=== PATIENT | female | born 1985 | race Caucasian/White ===

== ENCOUNTER 2018-02-18 10:36 | Emergency (ER) | payer SELFPAY ==
[2018-02-18 10:38] VITALS: BP 125/75; PULSE 63; PULSE 78; RESP 18; TEMP 36.9; O2SAT 100
--- NOTE | 2018-02-18 11:10 | ED.DCSUM_ITS ---
- ER Visit Summary Date of Service: 02/18/18 Chief Complaint: Acute vertigo and prescription refill History of Present Illness: The patient is a 32 F who presents with acute intermittent vertigo that is associated with nausea, binocular blurred vision, a sense of feeling drunk and unsteadiness. Patient reports symptoms are better with her eyes closed. She denies headache. She denies double vision or loss of vision. She complains of a fullness muffled sensation left ear. Approximately a month ago she was diagnosed with influenza. She denies rhinorrhea or postnasal drainage. Denies sore throat. Denies neck pain. She denies any cardiac respiratory symptoms. GI is positive for nausea otherwise negative. She denies any urologic symptoms. There is no history of recent trauma. Please read written note for complete detail Physical Examination: Vitals are essentially unremarkable. BMI is 30.2. Head is atraumatic normocephalic. Pupils are equal round reactive. Extraocular muscles are intact. TMs are pearly white with landmarks noted. Nares patent with no drainage. Posterior pharynx without erythema or exudate. Uvula is midline. There is no dysphonia or dysphasia. Trachea is midline. There is no stridor with auscultation of the neck. Funduscopic exam reveals normal cup-to- disc ratio with no papilledema. There is no carotid bruit. Heart is regular without murmur, gallop or rub. S1 and S2 are normal. Lungs are clear to auscultation with good movement of air bilaterally. Abdomen is soft nontender. Patient is alert and oriented ?3. Motor is 5 over 5. Sensory is intact. DTRs are symmetric with no clonus or Babinski sign. Cranial 2 through 12 are intact. Cerebellar testing is normal. Romberg test with eyes open and closes normal. Gait was observed and normal. Greg-Hallpike maneuver was positive to left with complaint of nausea and vertigo and nystagmus was noted with fast component to the right. I Askew test was negative. Test Results: Patient's symptoms resolved after modified Ambika maneuver. Emergency Department Course and Treatment: Patient was informed her symptoms are secondary to paroxysmal benign positional vertigo. She was informed of treatment and modified Ambika maneuver was performed. She also received a prescription for her Synthroid. Treatment Plan: Follow-up with Dr. Chao as needed Disposition: Discharged home in stable improved condition Impression: 1. Paroxysmal benign positional vertigo with crystal manipulation 2. Prescription refill for Synthroid This note was generated with [employer] dictation software. It may contain incorrect words, spelling, and punctuation that were not noted in review of the chart prior to signing ED Disposition - Plan for ED Patient: Disposition: Home or Assisted Living Chief Complaint: Dizziness Instructions: ED BPV Vertigo Prescriptions: Levothyroxine Sodium [Synthroid] 100 mcg PO DAILY #30 tab Referrals: Raheel Morataya PA [Primary Care Provider] -
== END 2018-02-18 11:24 | disposition home or self-care (01) ==
LOC: ED 11:16
PROVIDERS: Emergency Provider Emergency Medicine; Family Provider Physician Assistant; PCP Physician Assistant
DX: H81.10 Benign paroxysmal vertigo, unspecified ear (principal); Z76.0 Encounter for issue of repeat prescription; E66.9 Obesity, unspecified; Z68.30 Body mass index [BMI] 30.0-30.9, adult; E03.9 Hypothyroidism, unspecified; Z79.899 Other long term (current) drug therapy
CPT/HCPCS: 99282

== ENCOUNTER 2018-04-29 11:30 | Emergency (ER) | payer SELFPAY ==
[2018-04-29 11:31] VITALS: BP 138/73; PULSE 73; RESP 16; TEMP 36.8; O2SAT 100; BMI 32.2
--- NOTE | 2018-04-29 11:54 | EKG12_ITS ---
Test Reason : Blood Pressure : / mmHG Vent. Rate : 077 BPM Atrial Rate : 077 BPM P-R Int : 126 ms QRS Dur : 092 ms QT Int : 398 ms P-R-T Axes : 004 006 023 degrees QTc Int : 450 ms Normal sinus rhythm Normal ECG Confirmed by WERNER TRAYLOR, JAYNE ([id number]), online content editor LOURDES JETER ([id number]) on 05/01/2018 2:28:06 PM Referred By: ISABELLA Confirmed By:JAYNE CALDERA MD
--- NOTE | 2018-04-29 11:54 | RAD_ITS ---
STUDY: X-RAY CHEST REASON FOR EXAM: Female, 32 years old. Chest heaviness TECHNIQUE: Single AP portable view of the chest. COMPARISON: 10/07/2017 FINDINGS: The lungs are clear and expanded. There is no demonstrated pleural abnormality. Normal size heart. Normal mediastinum and peng. Normal visualized pulmonary arteries. Normal visualized aortic arch and descending thoracic aorta. Normal visualized thoracic spine. Normal visualized ribs, clavicles, and shoulders. There is no demonstrated abnormality of the visualized soft tissue structures of the upper abdomen. RAD/Chest 1 View (Portable) IMPRESSION: Normal x-ray examination of the chest. Electronically Signed: Haris Rosenberg DO at 12:41 EDT Tel , Service support ,
[2018-04-29 12:14] VITALS: BP 117/56; BP 128/75; BP 129/79; PULSE 115; PULSE 71; PULSE 78
[2018-04-29 12:23] LABS: Absolute Lymphocyte Count 1.31 X10^3/ul (0.83-4.51); Basophil# 0.06 X10^3/uL; Basophil% 1.2 % (0-1); Hematocrit 30.1 % (37-47); Hemoglobin 7.9 g/dl (12.0-15.0); Lymphocyte # 1.31 X10^3/ul (4.0); Lymphocyte % 26.4 % (19-41); Mean Corp Hgb Conc 26.2 g/gl (32-36); Mean Corpuscular Volume 60.8 fL (81-99); Monocyte# 0.49 X10^3/uL; Monocyte% 9.9 % (0-10); Neutrophil % 60.5 % (47-70); Platelet Count 274 K/mm3 (150-450); RBC Distribution Width CV 18.7 % (11.6-14.6); RBC Distribution Width SD 40.8 fl (35.1-43.9); Red Blood Count 4.95 M/mm3 (4.2-5.4)
[2018-04-29 12:24] LABS: Differential Indicated SCAN CRITERIA MET; POSITIVE COUNT NO; POSITIVE DIFFERENTIAL NO; POSITIVE MORPHOLOGY YES
[2018-04-29] MEDS: Ondansetron 4 MG/2 ML Vial IV (12:25)
[2018-04-29] MEDS: 0.9% Normal Saline 1,000 ML 1000 ML IV (12:25)
[2018-04-29 12:44] LABS: Anion Gap 8 (5-15); BUN 8 mg/dL (7-18); Calcium,Total 8.4 mg/dL (8.5-10.1); Chloride 108 mmol/L (98-107); Creatinine, Serum 0.73 mg/dL (0.55-1.02); EST Glomerular Filtration Rate 98 mL/min (>60); Est Glom Filt Rate - Afr Amer 118 mL/min (>60); Estimated Creatinine Clearance 90.67 ml/min; Glucose 94 mg/dL (74-106); Potassium 3.9 mmol/L (3.5-5.1); Sodium Level 140 mmol/L (136-145)
[2018-04-29 12:48] LABS: Pregnancy, Serum, hCG Quali. NEGATIVE Negative (0-9 Nonpreg)
[2018-04-29 13:05] LABS: Bacteria 0 SEEN /hpf (None Seen); Mucous, Urine 0 SEEN /hpf (<or=2+); Red Blood Cells-Urine 0 SEEN /hpf (0-5)
[2018-04-29 13:12] LABS: Color, Urine Straw (Yellow); Glucose, Dipstick Normal (Normal); Ketone-Dipstick Negative (Negative); Leukocyte Esterase-Dipstick 100 /ul (Negative); Nitrite-Dipstick Negative (Negative); Occult Blood-Urine Negative /ul (Negative); Protein-Dipstick Negative (Negative); Urine Bilirubin Dipstick Negative (Negative); Urine Clarity Sl. Cloudy (Clear); Urine Urobilinogen Normal (Normal)
[2018-04-29 13:20] LABS: Squamous Epithelial Cells - UA 0-5 SEEN /hpf (5-10); White Blood Cells 10-25 SEEN /hpf (0-5)
--- NOTE | 2018-04-29 13:36 | ED.DCSUM_ITS ---
- ER Visit Summary Date of Service: 04/29/18 Chief Complaint: Vertigo History of Present Illness: The patient is a [address] Chao. She reports that she has vertigo that began yesterday. She had 3 episodes yesterday lasted 30-45 minutes. Today she had an episode lasted 20 minutes. She reports that she has had buzzing in her left ear and muffled hearing. She denies any slurred speech or double vision. Patient also reports that she feels lightheaded. She reports that it comes on randomly and is not related to posture. She reports that she has left-sided chest pain that began 2 weeks ago. It is a constant waxing and waning pain. Is 10 out of 10 currently. It is increased with twisting and decreased with laying down. She denies any ankle swelling or calf pain. No history of DVT. No recent travel. She is not on control pills. She does not smoke. Physical Examination: Vitals: Stable. Afebrile. General: Well-nourished and well-developed. Head: Normocephalic atraumatic. Neck: Supple, no lymphadenopathy. No JVD. Nontender. Cardiovascular: Regular rate and rhythm. No murmurs. Respiratory: No respiratory distress. Clear to auscultation bilaterally. Abdominal: Soft, nontender, nondistended, normal bowel sounds. No guarding, rebound, or peritoneal signs. Back: Nontender. Extremities: Nontender, no edema. Skin: Normal color, no rash. Neurologic: Alert and oriented ?3. Cranial nerves II through XII are intact. Normal strength and sensation. Psych: Normal affect. Test Results: EKG is sinus at 77 with no acute changes. Troponin is negative despite 2 weeks of constant pain. Parents test negative. UA shows 10-25 white blood cells with no bacteria. Chem-7 more for chloride 108 and calcium of 8.4. CBC is more for hemoglobin is 7.9. Last year her hemoglobin range between 7.5 -7.7. Chest x-ray is normal. Emergency Department Course and Treatment: Patient has had no vertigo while here. She had orthostatic vital signs that were positive. Her heart rate went from 78-115. She is given a liter of normal saline is resting comfortably. Had a prolonged discussion with the patient about her anemia. She reports that she has been anemic since she was born. States that she is only required one transfusion and that was during a . Treatment Plan: Patient will be discharged with Zofran, Antivert, and Cipro. Instructed health her primary care physician 3-5 days not improving. Return to the emergency department for any worsening symptoms. Disposition: To home in improved and stable condition. Impression: 1. Orthostatic hypotension. 2. Anemia, chronic. 3. UTI. 4. Vertigo, peripheral. 5. Chest pain, atypical. This note was generated with [employer] dictation software. It may contain incorrect words, spelling, and punctuation that were not noted in review of the chart prior to signing ED Disposition - Plan for ED Patient: Disposition: Home or Assisted Living Chief Complaint: Dizziness Instructions: ED Hypotension Orthostatic, ED UTI Cystitis Female Prescriptions: Ondansetron [Zofran Odt] 4 mg PO Q8H PRN PRN #10 tablet PRN Reason: Nausea Meclizine HCl [Antivert] 25 mg PO 4X/DAY PRN PRN #20 tablet PRN Reason: Dizziness Ciprofloxacin [Cipro] 500 mg PO BID #6 tablet Referrals: Raheel Morataya PA [Primary Care Provider] - 3-5 Days if not improving
[2018-04-29 13:39] VITALS: BP 132/67; PULSE 75; RESP 12; RESP 17; O2SAT 100
[2018-04-29] MEDS: Ciprofloxacin 500 MG Tablet PO (13:43)
== END 2018-04-29 13:49 | disposition home or self-care (01) ==
LOC: ED 12:25
PROVIDERS: Emergency Provider Emergency Medicine; Family Provider Physician Assistant; PCP Physician Assistant
DX: I95.1 Orthostatic hypotension (principal); D64.9 Anemia, unspecified; R42 Dizziness and giddiness; N39.0 Urinary tract infection, site not specified; R07.89 Other chest pain; J45.909 Unspecified asthma, uncomplicated; E03.9 Hypothyroidism, unspecified; Z79.899 Other long term (current) drug therapy
CPT/HCPCS: 71045; 80048; 81001; 84484; 84703; 85025; 93005; 96361; 96374; 99285; J7030; A4216; J2405

== ENCOUNTER 2018-11-19 14:13 | Emergency (ER) | payer SELFPAY ==
[2018-11-19 14:14] VITALS: BP 113/63; PULSE 87; RESP 16; TEMP 36.9; O2SAT 100; BMI 34.2
--- NOTE | 2018-11-19 14:33 | ED.VISSUMM ---
- ER Visit Summary Date of Service: 11/19/18 Chief Complaint: Nausea, vomiting and diarrhea. Also rash. History of Present Illness: The patient is a 33 F past medical history of anemia and is in. Prior cholecystectomy tubal ligation. States for the last 2 weeks she has had a rash left arm, right arm, abdomen and right thigh. It itches. States the last 3 days she has had nausea. Today at work started having nausea, vomiting and diarrhea. No fever. No significant abdominal pain. No dysuria. She is been treating the rash with hydrocortisone cream without any significant relief. Physical Examination: Well-appearing young female. No acute distress. Vital signs are stable. Afebrile. HEENT exam unremarkable. Moist mucous membranes. Neck nontender no lymphadenopathy. Lungs clear to auscultation bilaterally. Heart regular rhythm no murmur. Abdomen soft and nontender. Normal bowel sounds no peritoneal signs. No signs of obstruction. Both the right upper right lower quadrants are unremarkable. No hernias or masses. Extremities moves all 4. Neurovascularly intact. Back nontender. Skin there is a rash that is red on her left deltoid, right deltoid. Right mid abdomen and right thigh.. It is irritated from her scratching it. There is no petechiae or purpura. There is no sloughing of skin. Or vesicles. There is no cellulitis. It appears to be an allergic reaction that she has scratched. Neurologically she is awake and alert. Test Results: None Emergency Department Course and Treatment: Rash appears to be allergic reaction. The nausea vomiting diarrhea appears to be viral. She does not need IV hydration. She does not needs workup. Treatment Plan: Prednisone daily first dose given in ER for her allergic reaction rash Zofran as needed for the nausea and Disposition: Discharge Impression: Acute pruritic rash secondary to allergic reaction Acute viral syndrome with nausea, vomiting and diarrhea secondary to gastroenteritis This note was generated with [employer] dictation software. It may contain incorrect words, spelling, and punctuation that were not noted in review of the chart prior to signing ED Disposition - Plan for ED Patient: Chief Complaint: Nausea/Vomiting/Diarrhea Referrals: NOT,DEFINED [Primary Care Provider] -
--- NOTE | 2018-11-19 14:36 | ED.DCSUM_ITS ---
- ER Visit Summary Date of Service: 11/19/18 Chief Complaint: Nausea, vomiting and diarrhea. Also rash. History of Present Illness: The patient is a 33 F past medical history of anemia and is in. Prior cholecystectomy tubal ligation. States for the last 2 weeks she has had a rash left arm, right arm, abdomen and right thigh. It itches. States the last 3 days she has had nausea. Today at work started having nausea, vomiting and diarrhea. No fever. No significant abdominal pain. No dysuria. She is been treating the rash with hydrocortisone cream without any significant relief. Physical Examination: Well-appearing young female. No acute distress. Vital signs are stable. Afebrile. HEENT exam unremarkable. Moist mucous membranes. Neck nontender no lymphadenopathy. Lungs clear to auscultation bilaterally. Heart regular rhythm no murmur. Abdomen soft and nontender. Normal bowel sounds no peritoneal signs. No signs of obstruction. Both the right upper right lower quadrants are unremarkable. No hernias or masses. Extremities moves all 4. Neurovascularly intact. Back nontender. Skin there is a rash that is red on her left deltoid, right deltoid. Right mid abdomen and right thigh.. It is irritated from her scratching it. There is no petechiae or p urpura. There is no sloughing of skin. Or vesicles. There is no cellulitis. It appears to be an allergic reaction that she has scratched. Neurologically she is awake and alert. Test Results: None Emergency Department Course and Treatment: Rash appears to be allergic reaction. The nausea vomiting diarrhea appears to be viral. She does not need IV hydration. She does not needs workup. Treatment Plan: Prednisone daily first dose given in ER for her allergic reaction rash Zofran as needed for the nausea and Disposition: Discharge Impression: Acute pruritic rash secondary to allergic reaction Acute viral syndrome with nausea, vomiting and diarrhea secondary to gastroenteritis This note was generated with [employer] dictation software. It may contain incorrect words, spelling, and punctuation that were not noted in review of the chart prior to signing ED Disposition - Plan for ED Patient: Chief Complaint: Nausea/Vomiting/Diarrhea Referrals: NOT,DEFINED [Primary Care Provider] -
--- NOTE | 2018-11-19 14:36 | ED.DEP ---
ED Disposition - Plan for ED Patient: Disposition: Home or Assisted Living Chief Complaint: Nausea/Vomiting/Diarrhea Instructions: ED Gastroenteritis Viral, ED Allergic Reaction General Other Prescriptions: Ondansetron [Zofran Odt] 4 mg PO Q8H PRN PRN #10 tab PRN Reason: Nausea Prednisone [Deltasone] 40 mg PO DAILY 7 Days tab Referrals: Jasbir Mendoza MD [STAFF PHYSICIAN] - 1 Week if not improving Additional Instructions: Prednisone daily for the allergic reaction rash. Zofran as needed for nausea. If Not improving follow-up.
[2018-11-19] MEDS: predniSONE 20 MG Tablet 40 MG PO (14:47)
[2018-11-19] MEDS: Ondansetron ODT 4 MG Tablet 8 MG PO (14:48)
[2018-11-19 14:56] VITALS: RESP 18
--- OUTSIDE RECORDS SUMMARY | 2019-01-21 15:37 | XMS RPT_ITS ---
:1985 Author Organization [facility] Care Team Providers Name Role Phone Sebastian Evangelista Attending Unavailable Primay Care Physicia, No Primary Care Unavailable Raheel Morataya Primary Care Unavailable Kosta Ramos Attending Unavailable Raheel Morataya Primary Care Unavailable Chad Benton Attending Unavailable PROBLEMS PROBLEMS No Problem Records FoundPROCEDURES PROCEDURES No Procedure Records FoundRESULTS RESULTS DISCHARGE INSTRUCTION Observed: 11/19/2018 Status: F Source: [place] 3:27 PM [facility] Medical Records Department [address] [place] [address] Discharge Instruction 11/19/18 1436 MR#: [id number] Acct: [id number] Name: CANDIDA TREVIÑO Rep #: [id number] : 1985 33 From: Sebastian Evangelista MD PCP: Care Physician, No Primary Status: DEP ER ED Disposition - Plan for ED Patient: Disposition: Home or Assisted Living Chief Complaint: Nausea/Vomiting/Diarrhea Instructions: ED Gastroenteritis Viral, ED Allergic Reaction General Other Prescriptions: Ondansetron [Zofran Odt] 4 mg PO Q8H PRN PRN #10 tab PRN Reason: Nausea Prednisone [Deltasone] 40 mg PO DAILY 7 Days tab Referrals: Jasbir Mendoza MD [STAFF PHYSICIAN] - 1 Week if not improving Additional Instructions: Prednisone daily for the allergic reaction rash. Zofran as needed for nausea. If Not improving follow-up. What to do if you have Problems For any increased pain, shortness of breath, bleeding, nausea or vomiting, chest pain, or any unexpected problems, contact your Primary Care Provider. Call [facility] ([phone]) or report to the closest Emergency Room. Call 911 if necessary. 11/19/18 1527 <Electronically signed by Sebastian Evangelista MD> Date Sebastian Evangelista MD Cosigner Signature (If Indicated): Date CC: No Primary Care Physician EMERGENCY DEPARTMENT Observed: 11/19/2018 Status: F Source: [place] SUMMARY 3:27 PM [facility] Medical Records Department [address] [place] [id number] Emergency Department Summary 11/19/18 1433 MR#: [id number] Acct: [id number] Name: CANDIDA TREVIÑO Rep #: [id number] : 1985 33 From: Sebastian Evangelista MD PCP: Care Physician, No Primary Status: DEP ER - ER Visit Summary Date of Service: 11/19/18 Chief Complaint: Nausea, vomiting and diarrhea. Also rash. History of Present Illness: The patient is a 33 F past medical history of anemia and is in. Prior cholecystectomy tubal ligation. States for the last 2 weeks she has had a rash left arm, right arm, abdomen and right thigh. It itches. States the last 3 days she has had nausea. Today at work started having nausea, vomiting and diarrhea. No fever. No significant abdominal pain. No dysuria. She is been treating the rash with hydrocortisone cream without any significant relief. Physical Examination: Well-appearing young female. No acute distress. Vital signs are stable. Afebrile. HEENT exam unremarkable. Moist mucous membranes. Neck nontender no lymphadenopathy. Lungs clear to auscultation bilaterally. Heart regular rhythm no murmur. Abdomen soft and nontender. Normal bowel sounds no peritoneal signs. No signs of obstruction. Both the right upper right lower quadrants are unremarkable. No hernias or masses. Extremities moves all 4. Neurovascularly intact. Back nontender. Skin there is a rash that is red on her left deltoid, right deltoid. Right mid abdomen and right thigh.. It is irritated from her scratching it. There is no petechiae or purpura. There is no sloughing of skin. Or vesicles. There is no cellulitis. It appears to be an allergic reaction that she has scratched. Neurologically she is awake and alert. Test Results: None Emergency Department Course and Treatment: Rash appears to be allergic reaction. The nausea vomiting diarrhea appears to be viral. She does not need IV hydration. She does not needs workup. Treatment Plan: Prednisone daily first dose given in ER for her allergic reaction rash Zofran as needed for the nausea and Disposition: Discharge Impression: Acute pruritic rash secondary to allergic reaction Acute viral syndrome with nausea, vomiting and diarrhea secondary to gastroenteritis This note was generated with 3TEN8 dictation software. It may contain incorrect words, spelling, and punctuation that were not noted in review of the chart prior to signing ED Disposition - Plan for ED Patient: Chief Complaint: Nausea/Vomiting/Diarrhea Referrals: NOT,DEFINED [Primary Care Provider] - What to do if you have Problems For any increased pain, shortness of breath, bleeding, nausea or vomiting, chest pain, or any unexpected problems, contact your Primary Care Provider. Call [facility] ([phone]) or report to the closest Emergency Room. Call 911 if necessary. 11/19/18 1522 <Electronically signed by Sebastian Evangelista MD> Date Sebastian Ross Signature (If Indicated): Date CC: No Primary Care Physician 12 LEAD ELECTROCARDIOGRAM Observed: 05/01/2018 Status: F Source: [place] 2:28 PM [facility] REPOSITORY [facility] Cardiovascular Services [address] [place] [address] 12 Lead EKG 04/29/18 1207 MR#: [id number] Acct: [id number] Name: CANDIDA TREVIÑO Rep #: [id number] : 1985 32 From: Maxim Fulton MD Attending Dr: Status: DEP ER Ordering Dr: Chad Benton MD Date: 04/29/18 Location: ED Sex: F C Admitted: Test Reason : Blood Pressure : / mmHG Vent. Rate : 077 BPM Atrial Rate : 077 BPM P-R Int : 126 ms QRS Dur : 092 ms QT Int : 398 ms P-R-T Axes : 004 006 023 degrees QTc Int : 450 ms Normal sinus rhythm Normal ECG Confirmed by WERNER TRAYLOR, MAXIM ([id number]), international editorial producer LOURDES JETER ([id number]) on 05/01/2018 2:28:06 PM Referred By: ISABELLA Confirmed By:MAXIM FULTON MD 05/01/18 1428 Date Maxim Fulton MD CC: DOLLY Morataya; Chad Benton MD Signed EMERGENCY DEPARTMENT Observed: 04/29/2018 Status: F Source: [place] SUMMARY 4:31 PM [facility] [place] Medical Records Department [address] [place] [address] Emergency Department Summary 04/29/18 1334 MR#: [id number] Acct: [id number] Name: CANDIDA TREVIÑO Rep #: [id number] : 1985 32 From: Chad Benton MD PCP: DOLLY Carter Status: DEP ER - ER Visit Summary Date of Service: 04/29/18 Chief Complaint: Vertigo History of Present Illness: The patient is a [address] Chao. She reports that she has vertigo that began yesterday. She had 3 episodes yesterday lasted 30-45 minutes. Today she had an episode lasted 20 minutes. She reports that she has had buzzing in her left ear and muffled hearing. She denies any slurred speech or double vision. Patient also reports that she feels lightheaded. She reports that it comes on randomly and is not related to posture. She reports that she has left-sided chest pain that began 2 weeks ago. It is a constant waxing and waning pain. Is 10 out of 10 currently. It is increased with twisting and decreased with laying down. She denies any ankle swelling or calf pain. No history of DVT. No recent travel. She is not on control pills. She does not smoke. Physical Examination: Vitals: Stable. Afebrile. General: Well-nourished and well-developed. Head: Normocephalic atraumatic. Neck: Supple, no lymphadenopathy. No JVD. Nontender. Cardiovascular: Regular rate and rhythm. No murmurs. Respiratory: No respiratory distress. Clear to auscultation bilaterally. Abdominal: Soft, nontender, nondistended, normal bowel sounds. No guarding, rebound, or peritoneal signs. Back: Nontender. Extremities: Nontender, no edema. Skin: Normal color, no rash. Neurologic: Alert and oriented 3. Cranial nerves II through XII are intact. Normal strength and sensation. Psych: Normal affect. Test Results: EKG is sinus at 77 with no acute changes. Troponin is negative despite 2 weeks of constant pain. Parents test negative. UA shows 10-25 white blood cells with no bacteria. Chem-7 more for chloride 108 and calcium of 8.4. CBC is more for hemoglobin is 7.9. Last year her hemoglobin range between 7.5-7.7. Chest x-ray is normal. Emergency Department Course and Treatment: Patient has had no vertigo while here. She had orthostatic vital signs that were positive. Her heart rate went from 78-115. She is given a liter of normal saline is resting comfortably. Had a prolonged discussion with the patient about her anemia. She reports that she has been anemic since she was born. States that she is only required one transfusion and that was during a . Treatment Plan: Patient will be discharged with Zofran, Antivert, and Cipro. Instructed health her primary care physician 3-5 days not improving. Return to the emergency department for any worsening symptoms. Disposition: To home in improved and stable condition. Impression: 1. Orthostatic hypotension. 2. Anemia, chronic. 3. UTI. 4. Vertigo, peripheral. 5. Chest pain, atypical. This note was generated with [employer] software. It may contain incorrect words, spelling, and punctuation that were not noted in review of the chart prior to signing ED Disposition - Plan for ED Patient: Disposition: Home or Assisted Living Chief Complaint: Dizziness Instructions: ED Hypotension Orthostatic, ED UTI Cystitis Female Prescriptions: Ondansetron [Zofran Odt] 4 mg PO Q8H PRN PRN #10 tablet PRN Reason: Nausea Meclizine HCl [Antivert] 25 mg PO 4X/DAY PRN PRN #20 tablet PRN Reason: Dizziness Ciprofloxacin [Cipro] 500 mg PO BID #6 tablet Referrals: Raheel Morataya PA [Primary Care Provider] - 3-5 Days if not improving What to do if you have Problems For any increased pain, shortness of breath, bleeding, nausea or vomiting, chest pain, or any unexpected problems, contact your Primary Care Provider. Call [facility] ([phone]) or report to the closest Emergency Room. Call 911 if necessary. 04/29/18 1631 <Electronically signed by Chad Benton MD> Date Chad Benton MD Cosigner Signature (If Indicated): Date CC: DOLLY Morataya URINALYSIS, COMPLETE Collected: 04/29/2018 Status: F Source: [place] 12:55 PM [facility] Order Comment: Has pt arrived? Y How was Urine Obtained? CLEAN CATCH TYPE CODE TESTS RESULT OUT OF RANGE REFERENCE UNITS LAB L400.3000 Yellow COLOR Normal Straw LAB L400.3050 Clear Normal CLARITY Sl. Cloudy LAB L400.3200 Normal mg/dl Normal GLUCOSE, UR Normal LAB L400.3300 Negative mg/dL Normal BILIRUBIN URINE Negative LAB L400.3400 Negative mg/dl Normal KETONE UR Negative LAB L400.3465 1.002-1.030 Normal SP.GR. DIPSTX 1.010 LAB L400.3550 5.0 - 8.0 pH UR Normal 8.0 LAB L400.3600 Negative mg/dl PROT Normal DIPSTX Negative LAB L400.3700 Normal mg/dl Normal UROBILI Normal LAB L400.3750 Negative Normal NITRITE UR Negative LAB L400.3780 Negative /ul Normal OCCULT BLOOD-UR Negative LAB L400.3800 Negative /ul High LEUK ESTERASE 100 LAB L400.4050 0-5 /hpf WBC Normal 10-25 SEEN LAB L400.4100 0-5 /hpf 0 Normal RBC-UA SEEN LAB L400.4150 5-10 /hpf SQUAM Normal EPI 0-5 SEEN LAB L400.4300 None Seen /hpf 0 Normal BACTERIA SEEN LAB L400.4350 <or=2+ /hpf 0 Normal MUCUS, URINE SEEN Performed By: #### L400.0001 #### [facility] [address] [place], [address] CBC W/DIFF, AUTOMATED Collected: 04/29/2018 Status: F Source: [place] 12:05 PM [facility] TYPE CODE TESTS RESULT OUT OF RANGE REFERENCE UNITS LAB L100.1000 4.4-11.0 K/mm3 Normal WBC 5.0 LAB L100.1200 4.2-5.4 M/mm3 Normal RBC 4.95 LAB L100.1300 12.0-15.0 g/dl Low HGB 7.9 LAB L100.1400 37-47 % Low HCT 30.1 LAB L100.1500 81-99 fL Low MCV 60.8 LAB L100.1600 27.0-32.0 pg Low MCH 16.0 LAB L100.1700 32-36 g/gl Low MCHC 26.2 LAB L100.1810 11.6-14.6 % High RDW CV 18.7 LAB L100.1820 35.1-43.9 fl Normal RDW SD 40.8 LAB L100.1900 150-450 K/mm3 Normal PLT 274 LAB L100.2100 47-70 % Normal NEUT% 60.5 LAB L100.2200 19-41 % Normal LY% 26.4 LAB L100.2300 0-10 % Normal MONO% 9.9 LAB L100.2400 0-5 % Normal EO% 2.0 LAB L100.2500 0-1 % High BASO% 1.2 LAB L100.2550 0.0-0.9 % Normal IM GRAN % 0.000 Result Comment: IG% - Immature Granulocytes (promyelocytes, myelocytes and metamyelocytes) > 1% indicates that a LEFT SHIFT is Present. LAB L100.2620 2.0-7.7 X10 3/uL Normal Absolute Neut 3.0 LAB L100.2720 0.83-4.51 X10 3/ul Normal Absolute Lymph 1.31 LAB L100.4500 SMEAR Normal COMMENT Result Comment: SLIDE SCANNED - 1+ TARGET CELLS, 1+ LARGE PLTS. Performed By: #### L100.0100 #### [facility] [address] [place], [place], [address] BASIC METABOLIC Collected: 04/29/2018 Status: F Source: [place] PROFILE (BMP) 12:05 PM [facility] TYPE CODE TESTS RESULT OUT OF RANGE REFERENCE UNITS LAB L501.0100 74-106 mg/dL Normal GLU 94 Result Comment: Please note revised GLUCOSE reference range effective 2017. LAB L501.1000 7-18 mg/dL Normal BUN 8 LAB L501.1100 0.55-1.02 mg/dL Normal CREAT,SERUM 0.73 Result Comment: The validity of the calculated GFR AND GFRAA in patients over 70 years has not been determined. Clinical correlation is essential. LAB L501.1110 >60 mL/min Normal EST GFR 98 Result Comment: Non- GFR Calc LAB L501.1115 >60 mL/min Normal EST GFR - AA 118 Result Comment: GFR Calc LAB L501.1255 ml/min Normal Estimated CRCL 90.67 LAB L501.1300 10-20 RATIO Normal BUN/CRE 11.0 LAB L501.2200 8.5-10 mg/dL Low .1 CA 8.4 LAB L501.5300 136-14 mmol/L Normal 5 NA 140 LAB L501.5600 3.5-5. mmol/L Normal 1 K 3.9 LAB L501.5900 98-107 mmol/L High CL 108 LAB L501.6100 21.0-3 mmol/L Normal 2.0 CO2 24.0 LAB L501.6200 5-15 Normal GAP 8 Performed By: #### L500.2500, L501.4010 #### [facility] [address] [place], [place], [address] TROPONIN-I Collected: 04/29/2018 Status: F Source: [place] 12:05 PM [facility] TYPE CODE TESTS RESULT OUT OF RANGE REFERENCE UNITS LAB L501.4010 <0.045 ng/mL Normal < 0.015 TROPONIN-I Result Comment: TROPONIN-I EXPECTED VALUES <0.045 Negative 0.045 - 0.590 Consistent with Cardiac Damage > OR = 0.600 Critical Value Not every elevated troponin is indicative of [place]. These values should be used with clinical judgement in examining the patient's clinical picture for diagnosis. To establish a diagnosis of [place] versus myocardial injury, there must be a demonstrated rise and/or fall in the troponin values, in addition to ischemic symptoms, EKG changes, new regional wall motion abnormality, and/or angiographical evidence. PLEASE NOTE: REFERENCE RANGES EDITED 18 Performed By: #### L500.2500, L501.4010 #### [facility] [address] [place], [place], [id number] ,SERUM,HCG QUALI. Collected: Status: F Source: [place] 04/29/2018 12:05 PM [facility] TYPE CODE TESTS RESULT OUT OF REFERENCE UNITS RANGE LAB L700.6700 =>Qualitative mIU/mL Normal HCG Qual < 1 triggr LAB L700.7000 0-9 Nonpreg Negative Normal HCGSQUAL NEGATIVE Performed By: #### L700.6800 #### [facility] [address] [place], [place], [address] CHEST 1 VIEW Observed: 04/29/2018 Status: F Source: [place] (PORTABLE) 11:56 AM [facility] REPOSITORY [facility] Imaging Services [address] [place] [address] Chest 1 View (Portable) MR#: [id number] Acct: [id number] Name: CANDIDA TREVIÑO Rep #: [id number] : 1985 F 32 From: Haris Rosenberg DO PCP: DOLLY Carter Status: REG ER Study: Chest 1 View (Portable) Date of Exam: 04/29/18 Exam# [id number] Ordering Dr: Chad Benton MD STUDY: X-RAY CHEST REASON FOR EXAM: Female, 32 years old. Chest heaviness TECHNIQUE: Single AP portable view of the chest. COMPARISON: 10/07/2017 FINDINGS: The lungs are clear and expanded. There is no demonstrated pleural abnormality. Normal size heart. Normal mediastinum and peng. Normal visualized pulmonary arteries. Normal visualized aortic arch and descending thoracic aorta. Normal visualized thoracic spine. Normal visualized ribs, clavicles, and shoulders. There is no demonstrated abnormality of the visualized soft tissue structures of the upper abdomen. RAD/Chest 1 View (Portable) IMPRESSION: Normal x-ray examination of the chest. Electronically Signed: Haris Rosenberg DO at 12:41 EDT Tel , Service support , CC: DOLLY Morataya; Chad Benton MD Test Hole Driller: Signed EMERGENCY DEPARTMENT Observed: 02/18/2018 Status: F Source: [place] SUMMARY 11:10 AM [facility] Medical Records Department [address] [place] [address] Emergency Department Summary 02/18/18 1104 MR#: [id number] Acct: [id number] Name: CANDIDA TREVIÑO Rep #: [id number] : 1985 32 From: Kosta Ramos MD PCP: DOLLY Carter Status: PRE ER - ER Visit Summary Date of Service: 02/18/18 Chief Complaint: Acute vertigo and prescription refill History of Present Illness: The patient is a 32 F who presents with acute intermittent vertigo that is associated with nausea, binocular blurred vision, a sense of feeling drunk and unsteadiness. Patient reports symptoms are better with her eyes closed. She denies headache. She denies double vision or loss of vision. She complains of a fullness muffled sensation left ear. Approximately a month ago she was diagnosed with influenza. She denies rhinorrhea or postnasal drainage. Denies sore throat. Denies neck pain. She denies any cardiac respiratory symptoms. GI is positive for nausea otherwise negative. She denies any urologic symptoms. There is no history of recent trauma. Please read written note for complete detail Physical Examination: Vitals are essentially unremarkable. BMI is 30.2. Head is atraumatic normocephalic. Pupils are equal round reactive. Extraocular muscles are intact. TMs are pearly white with landmarks noted. Nares patent with no drainage. Posterior pharynx without erythema or exudate. Uvula is midline. There is no dysphonia or dysphasia. Trachea is midline. There is no stridor with auscultation of the neck. Funduscopic exam reveals normal cup-to-disc ratio with no papilledema. There is no carotid bruit. Heart is regular without murmur, gallop or rub. S1 and S2 are normal. Lungs are clear to auscultation with good movement of air bilaterally. Abdomen is soft nontender. Patient is alert and oriented 3. Motor is 5 over 5. Sensory is intact. DTRs are symmetric with no clonus or Babinski sign. Cranial 2 through 12 are intact. Cerebellar testing is normal. Romberg test with eyes open and closes normal. Gait was observed and normal. [place]-Hallpike maneuver was positive to left with complaint of nausea and vertigo and nystagmus was noted with fast component to the right. I Askew test was negative. Test Results: Patient's symptoms resolved after modified Ambika maneuver. Emergency Department Course and Treatment: Patient was informed her symptoms are secondary to paroxysmal benign positional vertigo. She was informed of treatment and modified Ambika maneuver was performed. She also received a prescription for her Synthroid. Treatment Plan: Follow-up with Dr. Chao as needed Disposition: Discharged home in stable improved condition Impression: 1. Paroxysmal benign positional vertigo with crystal manipulation 2. Prescription refill for Synthroid This note was generated with 3TEN8 dictation software. It may contain incorrect words, spelling, and punctuation that were not noted in review of the chart prior to signing ED Disposition - Plan for ED Patient: Disposition: Home or Assisted Living Chief Complaint: Dizziness Instructions: ED BPV Vertigo Prescriptions: Levothyroxine Sodium [Synthroid] 100 mcg PO DAILY #30 tab Referrals: Raheel Morataya PA [Primary Care Provider] - What to do if you have Problems For any increased pain, shortness of breath, bleeding, nausea or vomiting, chest pain, or any unexpected problems, contact your Primary Care Provider. Call [facility] ([phone]) or report to the closest Emergency Room. Call 911 if necessary. 02/18/18 1110 <Electronically signed by Kosta Ramos MD> Date Kosta Ramos MD Cosigner Signature (If Indicated): Date CC: DOLLY Morataya GROUP A STREP BY Collected: 01/07/2018 Status: F Source: [place] PCR 11:58 AM [facility] REPOSITORY TYPE CODE TESTS RESULT OUT OF REFERENCE UNITS RANGE LAB GASSRC Throat Swab GAS Specimen Source LAB PCRGAS Negative for Group A Strep Group A PCR Streptococcus by PCR. Result Comment: This test was developed and its performance characteristics determined by [facility]'s [facility] [place] [facility]). It has not been cleared or approved by the FDA. [facility] is regulated under CLIA as qualified to perform high-complexity testing. This test is used for clinical purposes. It should not be regarded as inv estigational or for research. Performed By: #### GASPCR #### [facility] [address] [place], [place] [address] PROGRESS Observed: 01/07/2018 Status: COMPLETED Source: [place] 11:51 AM [facility] [place] REPOSITORY HNO ID: [id number] Author: Danya De La Torre) [place] Service: (none) Author Type: Nurse Practitioner Type: Progress Notes Filed: 01/07/2018 12:08 PM Note Text: Subjective HPI Sore throat and bilateral ear pain since this morning about 0300. Has hx of asthma but has not had to use inhaler more frequently Review of Systems Constitutional: Positive for fever. HENT: Positive for congestion, ear pain and sore throat. Eyes: Negative. Respiratory: Positive for cough, sputum production and shortness of breath. Cardiovascular: Negative. Gastrointestinal: Positive for abdominal pain, nausea and vomiting. Genitourinary: Negative. Musculoskeletal: Positive for myalgias. Objective Physical Exam Constitutional: She is oriented to person, place, and time and well-developed, well-nourished, and in no distress. HENT: Head: Normocephalic. Mouth/Throat: Oropharynx is clear and moist. Neck: Normal range of motion. Neck supple. Cardiovascular: Normal rate, regular rhythm and normal heart sounds. Pulmonary/Chest: Effort normal and breath sounds normal. Abdominal: Soft. Very mild left lower tenderness Musculoskeletal: Normal range of motion. Neurological: She is alert and oriented to person, place, and time. Gait normal. GCS score is 15. Skin: Skin is warm and dry. Psychiatric: Mood, memory, affect and judgment normal. Nursing note and vitals reviewed. BP 110/70 Pulse 88 Temp 37.8 ?C (100 ?F) (Tympanic) Resp 18 Wt 83.5 kg (184 lb) BMI 32.59 kg/m2 .Patient presents with: Sore Throat: bilateral ear pain, vomiting, nasal drainage and fever x this am PAST MEDICAL HISTORY Diagnosis Date - Anemia - Hypothyroid PAST SURGICAL HISTORY Procedure Laterality Date - LAPAROSCOPIC CHOLEYCYSTECTOMY 2013 Cholecystectomy, lap - LIGATE FALLOPIAN TUBE 2013 Tubal ligation - MOUTH SURGERY HX 03/2014 full dental extraction ALLERGIES Tian MEDICATIONS ferrous sulfate 325 mg (65 mg iron) tablet Take 325 mg by mouth twice daily. FOLIC ACID ORAL Take 1 tablet by mouth once daily. Levothyroxine 100 mcg cap Take 1 capsule by mouth once daily. miSOPROStol (CYTOTEC) 200 mcg tablet Take 1 tablet by mouth every 6 hours as needed. FAMILY HISTORY Problem Relation Age of Onset - Diabetes Maternal Grandmother - Cancer Maternal Grandmother Hodgkin lymphoma - Diabetes Paternal Grandmother - Heart Paternal Grandmother - Colon Cancer Paternal Grandfather 70 from metastatic colon cancer Social History Substance Use Topics - Smoking status: Never Smoker - Smokeless tobacco: Never Used - Alcohol use Yes Comment: Occasionally ASSESSMENT/PLAN: 1. Sore throat - ICD9: 462, ICD10: J02.9 (primary diagnosis) - suspect viral - Rapid Strep negative in the office today - Discussed supportive care treatment with fluids, rest and analgesia. - The patient may also use OTC decongestants prn, OTC cough and cold meds as needed, behind the counter Pseudoephedrine, Cough syrup with codeine- Rx given, warm salt water gargles, throat lozenges and/or OTC throat spray as needed and nasal saline gtts and suction prn. - Contagious dz precautions discussed- including considered contagious until on antibiotics for 24 hours - The patient should follow up in 3-5 days if symptoms persist or worsen - Call back if drooling, increased temperature, symptoms of dehydration and/or still sick in one week - GROUP A STREPTOCOCCUS BY PCR - RAPID STREP TEST B/O 2. Influenza - ICD9: 487.1, ICD10: J11.1 Discussed with pt that symptoms are most consistent with flu. Discussed treatment with Tamiflu which pt declines. As pt is in no distress I feel that symptomatic treatment is a viable option. Danya Avitia CNP Prescription instructions reviewed with patient as applicable. Patient advised if symptoms do not improve or if symptoms worsen sooner, to contact the office for further evaluation by either myself or their primary care physician. Potential red flag symptoms discussed with the patient. Reviewed appropriate action plan to take if red flag symptoms occur. Patient agreeable to treatment plan. Danya Avitia CNP CNOV Observed: 01/07/2018 Status: COMPLETED Source: [facility] 11:30 AM [facility] Office Visit ([facility]) HERNANDEZCANDIDA PEDRAZA ([id number]) 1985 F Date Time Provider Department 01/07/18 11:30 AM DANYA AVITIA) [facility] During your visit today, we recorded the following information about you: Temperature Pulse Respiration Blood pressure 100 degrees 88/minute 18/minute 110/70 Weight 83.5 kg Danya Avitia CNP 01/07/2018 12:08 PM Signed Subjective HPI Sore throat and bilateral ear pain since this morning about 0300. Has hx of asthma but has not had to use inhaler more frequently Review of Systems Constitutional: Positive for fever. HENT: Positive for congestion, ear pain and sore throat. Eyes: Negative. Respiratory: Positive for cough, sputum production and shortness of breath. Cardiovascular: Negative. Gastrointestinal: Positive for abdominal pain, nausea and vomiting. Genitourinary: Negative. Musculoskeletal: Positive for myalgias. Objective Physical Exam Constitutional: She is oriented to person, place, and time and well-developed, well-nourished, and in no distress. HENT: Head: Normocephalic. Mouth/Throat: Oropharynx is clear and moist. Neck: Normal range of motion. Neck supple. Cardiovascular: Normal rate, regular rhythm and normal heart sounds. Pulmonary/Chest: Effort normal and breath sounds normal. Abdominal: Soft. Very mild left lower tenderness Musculoskeletal: Normal range of motion. Neurological: She is alert and oriented to person, place, and time. Gait normal. GCS score is 15. Skin: Skin is warm and dry. Psychiatric: Mood, memory, affect and judgment normal. Nursing note and vitals reviewed. BP 110/70 Pulse 88 Temp 37.8 ?C (100 ?F) (Tympanic) Resp 18 Wt 83.5 kg (184 lb) BMI 32.59 kg/m2 .Patient presents with: Sore Throat: bilateral ear pain, vomiting, nasal drainage and fever x this am PAST MEDICAL HISTORY Diagnosis Date - Anemia - Hypothyroid PAST SURGICAL HISTORY Procedure Laterality Date - LAPAROSCOPIC CHOLEYCYSTECTOMY 2013 Cholecystectomy, lap - LIGATE FALLOPIAN TUBE 2014 Tubal ligation - MOUTH SURGERY HX 03/2014 full dental extraction ALLERGIES Tian MEDICATIONS ferrous sulfate 325 mg (65 mg iron) tablet Take 325 mg by mouth twice daily. FOLIC ACID ORAL Take 1 tablet by mouth once daily. Levothyroxine 100 mcg cap Take 1 capsule by mouth once daily. miSOPROStol (CYTOTEC) 200 mcg tablet Take 1 tablet by mouth every 6 hours as needed. FAMILY HISTORY Problem Relation Age of Onset - Diabetes Maternal Grandmother - Cancer Maternal Grandmother Hodgkin lymphoma - Diabetes Paternal Grandmother - Heart Paternal Grandmother - Colon Cancer Paternal Grandfather 70 from metastatic colon cancer Social History Substance Use Topics - Smoking status: Never Smoker - Smokeless tobacco: Never Used - Alcohol use Yes Comment: Occasionally ASSESSMENT/PLAN: 1. Sore throat - ICD9: 462, ICD10: J02.9 (primary diagnosis) - suspect viral - Rapid Strep negative in the office today - Discussed supportive care treatment with fluids, rest and analgesia. - The patient may also use OTC decongestants prn, OTC cough and cold meds as needed, behind the counter Pseudoephedrine, Cough syrup with codeine- Rx given, warm salt water gargles, throat lozenges and/or OTC throat spray as needed and nasal saline gtts and suction prn. - Contagious dz precautions discussed- including considered contagious until on antibiotics for 24 hours - The patient should follow up in 3-5 days if symptoms persist or worsen - Call back if drooling, increased temperature, symptoms of dehydration and/or still sick in one week - GROUP A STREPTOCOCCUS BY PCR - RAPID STREP TEST B/O 2. Influenza - ICD9: 487.1, ICD10: J11.1 Discussed with pt that symptoms are most consistent with flu. Discussed treatment with Tamiflu which pt declines. As pt is in no distress I feel that symptomatic treatment is a viable option. Danya Avitia CNP Prescription instructions reviewed with patient as applicable. Patient advised if symptoms do not improve or if symptoms worsen sooner, to contact the office for further evaluation by either myself or their primary care physician. Potential red flag symptoms discussed with the patient. Reviewed appropriate action plan to take if red flag symptoms occur. Patient agreeable to treatment plan. AUREA Corona CNP 01/07/2018 11:59 AM Signed [facility] PATIENT INFO INFLUENZA INTRODUCTION Influenza (commonly called the flu) is a highly contagious illness that can occur in children or adults of any age. It occurs more often in the winter months because people spend more time in close contact with one another. The flu is spread easily from [id number]-iz-lvafgt by coughing, sneezing, or touching surfaces. Every year, complications of the flu require more than 200,000 people in the [place] to be hospitalized. Serious illness is more likely in the very young, older adults, women, and people who have certain health problems such as asthma or other forms of lung disease. There have been several widespread flu outbreaks (called pandemics), which led to the deaths of many people worldwide. These outbreaks occurred when new strains of influenza viruses formed (often from pigs or birds) and humans became infected because they had no immunity to these viruses. FLU SYMPTOMS Symptoms of seasonal flu can vary from person to person, but usually include: ? Fever (temperature higher than 100?F or 37.8?C) ? Headache and muscle aches ? Fatigue ? Cough and sore throat may also be present People with the flu usually have a fever for two to five days. This is different than fever caused by other upper respiratory viruses, which usually resolve after 24 to 48 hours. Some people have cold-like symptoms (runny nose, sore throat) during the flu while others have fever and muscle aches. Flu symptoms usually improve over two to five days, although the illness may last for a week or more. Weakness and fatigue may persist for several weeks Flu complications ? Complications of influenza occur in some people; pneumonia is the most common complication. Pneumonia is a serious infection of the lungs, and is more likely to occur in people over the age of 65, people who live in terminal gauger care facilities (nursing homes), and those with other illnesses such as diabetes or conditions affecting the heart or lungs. FLU DIAGNOSIS Influenza is usually diagnosed based on symptoms (fever, cough and muscle aches). Lab testing for influenza is performed in certain cases, such as during a new influenza outbreak in a community. FLU TREATMENT When to seek help ? Most people with the flu recover within one to two weeks without treatment. However, serious complications of the flu can occur. Call your doctor or nurse immediately if: ? You feel short of breath or have trouble breathing ? You have pain or pressure in your chest or stomach ? You have signs of being dehydrated, such as dizziness when standing or not passing urine ? You feel confused ? You cannot stop vomiting or you cannot drink enough fluids There are several groups of people who are at increased risk for flu complications. These include women, young children (ANDlt;5 years of age, and especially ANDlt;2 years of age), people ?65 years of age, and people with certain diseases such as chronic lung disease (such as asthma), heart disease, diabetes, immunosuppressing conditions (such as HIV infection or transplantation), and some other diseases. If you or your child has flu symptoms and is at increased risk of flu complications, you should call your healthcare provider. Treat symptoms ? Treating the symptoms of influenza can help you to feel better, but will not make the flu go away faster. ? Rest until the flu is fully resolved, especially if the illness has been severe ? Fluids ? Drink enough fluids so that you do not become dehydrated. One way to carpet technician if you are drinking enough is to look at the color of your urine. Normally, urine should be light yellow to nearly colorless. If you are drinking enough, you should pass urine every three to five hours. ? Acetaminophen (such as Tylenol? and other brands) can relieve fever, headache, and muscle aches. Aspirin, and medicines that include aspirin (eg, bismuth subsalicylate; PeptoBismol), are not recommended for children under 18 because aspirin can lead to a serious disease called Trey syndrome. ? Cough medicines are not usually helpful; cough usually resolves without treatment. We do not recommend cough or cold medicine for children under age six years. Antiviral treatment ? Antiviral medicines can be used to treat or prevent influenza. When used as a treatment, the medicine does not eliminate flu symptoms, although it can reduce the severity and duration of symptoms by about one day. Not every person with influenza needs an antiviral medicine; the decision is based upon your risk of developing complications of influenza. Antiviral treatment is most effective for seasonal influenza when it is taken within the first 48 hours of flu symptoms. Side effects ? Zanamivir and oseltamivir can cause mild side effects, including nausea and vomiting; zanamivir, which is inhaled, can cause difficulty breathing in some cases. Most people are able to continue the medicine despite the side effects. Antibiotics ? Antibiotics are NOT useful for treating viral illnesses such as influenza. Antibiotics should only used if there is a bacterial complication of the flu such as bacterial pneumonia, ear infection, or sinusitis. Antibiotics can cause side effects and lead to development of antibiotic resistance. Referring Provider: SELF [200] Allergies As of Date: 01/07/2018 Noted Allergy Reaction JAYLAN 11/30/2016 10 - Anaphylaxis Date Reviewed: 01/07/2018 Reviewed by: Anisa San Ma - Fully Assessed Reason for Visit: Sore Throat [200] Cmt: bilateral ear pain, vomiting, nasal drainage and fever x this am Primary Visit Diagnosis:Sore throat [J02.9] Other Visit Diagnosis:Influenza [J11.1] Order(s):GROUP A STREPTOCOCCUS BY PCR [SQGASPCR] Order #: [id number] RAPID STREP TEST B/O [[id number]] Order #: [id number] Prescriptions as of 01/07/2018 Sig: FERROUS SULFATE 325 MG (65 MG* Take 325 mg by mouth twice da* FOLIC ACID ORAL Take 1 tablet by mouth once d* LEVOTHYROXINE 100 MCG CAPSULE Take 1 capsule by mouth once * MISOPROSTOL 200 MCG TABLET Take 1 tablet by mouth every * Medication notes this encounter MISOPROSTOL 200 MCG TABLET >> Anisa San Ma 01/07/2018 11:33 AM >> ANISA SAN MA Jan 07, 2018 11:33 AM done Problem List As Of Date 01/07/2018 Noted Resolved Iron deficiency anemia due to chronic blood los*INVALID FOR* Iron malabsorption [K90.9] INVALID FOR* Other instructions from your clinician: [facility] PATIENT INFO INFLUENZA INTRODUCTION Influenza (commonly called the flu) is a highly contagious illness that can occur in children or adults of any age. It occurs more often in the winter months because people spend more time in close contact with one another. The flu is spread easily from erboat-jd-iulhbl by coughing, sneezing, or touching surfaces. Every year, complications of the flu require more than 200,000 people in the [place] to be hospitalized. Serious illness is more likely in the very young, older adults, women, and people who have certain health problems such as asthma or other forms of lung disease. There have been several widespread flu outbreaks (called pandemics), which led to the deaths of many people worldwide. These outbreaks occurred when new strains of influenza viruses formed (often from pigs or birds) and humans became infected because they had no immunity to these viruses. FLU SYMPTOMS Symptoms of seasonal flu can vary from person to person, but usually include: ? Fever (temperature higher than 100?F or 37.8?C) ? Headache and muscle aches ? Fatigue ? Cough and sore throat may also be present People with the flu usually have a fever for two to five days. This is different than fever caused by other upper respiratory viruses, which usually resolve after 24 to 48 hours. Some people have cold-like symptoms (runny nose, sore throat) during the flu while others have fever and muscle aches. Flu symptoms usually improve over two to five days, although the illness may last for a week or more. Weakness and fatigue may persist for several weeks Flu complications ? Complications of influenza occur in some people; pneumonia is the most common complication. Pneumonia is a serious infection of the lungs, and is more likely to occur in people over the age of 65, people who live in terminal gauger care facilities (nursing homes), and those with other illnesses such as diabetes or conditions affecting the heart or lungs. FLU DIAGNOSIS Influenza is usually diagnosed based on symptoms (fever, cough and muscle aches). Lab testing for influenza is performed in certain cases, such as during a new influenza outbreak in a community. FLU TREATMENT When to seek help ? Most people with the flu recover within one to two weeks without treatment. However, serious complications of the flu can occur. Call your doctor or nurse immediately if: ? You feel short of breath or have trouble breathing ? You have pain or pressure in your chest or stomach ? You have signs of being dehydrated, such as dizziness when standing or not passing urine ? You feel confused ? You cannot stop vomiting or you cannot drink enough fluids There are several groups of people who are at increased risk for flu complications. These include women, young children (<5 years of age, and especially <2 years of age), people ?65 years of age, and people with certain diseases such as chronic lung disease (such as asthma), heart disease, diabetes, immunosuppressing conditions (such as HIV infection or transplantation), and some other diseases. If you or your child has flu symptoms and is at increased risk of flu complications, you should call your healthcare provider. Treat symptoms ? Treating the symptoms of influenza can help you to feel better, but will not make the flu go away faster. ? Rest until the flu is fully resolved, especially if the illness has been severe ? Fluids ? Drink enough fluids so that you do not become dehydrated. One way to carpet technician if you are drinking enough is to look at the color of your urine. Normally, urine should be light yellow to nearly colorless. If you are drinking enough, you should pass urine every three to five hours. ? Acetaminophen (such as Tylenol? and other brands) can relieve fever, headache, and muscle aches. Aspirin, and medicines that include aspirin (eg, bismuth subsalicylate; PeptoBismol), are not recommended for children under 18 because aspirin can lead to a serious disease called Trey syndrome. ? Cough medicines are not usually helpful; cough usually resolves without treatment. We do not recommend cough or cold medicine for children under age six years. Antiviral treatment ? Antiviral medicines can be used to treat or prevent influenza. When used as a treatment, the medicine does not eliminate flu symptoms, although it can reduce the severity and duration of symptoms by about one day. Not every person with influenza needs an antiviral medicine; the decision is based upon your risk of developing complications of influenza. Antiviral treatment is most effective for seasonal influenza when it is taken within the first 48 hours of flu symptoms. Side effects ? Zanamivir and oseltamivir can cause mild side effects, including nausea and vomiting; zanamivir, which is inhaled, can cause difficulty breathing in some cases. Most people are able to continue the medicine despite the side effects. Antibiotics ? Antibiotics are NOT useful for treating viral illnesses such as influenza. Antibiotics should only used if there is a bacterial complication of the flu such as bacterial pneumonia, ear infection, or sinusitis. Antibiotics can cause side effects and lead to development of antibiotic resistance. Letter Text [facility] Danya Avitia CNP [address], [place] [address] 01/07/2018 TO WHOM IT MAY CONCERN: This is to confirm that Candida Trveiño had an appointment and was seen at the [facility] in the Department of Urgent Care by Danya Avitia CNP on 01/07/2018 and may return to work on 01/10/2018. Pt has symptoms consistent with influenza and is highly contagious Sincerely yours, Danya Avitia CNP Encounter Status:Closed by DANYA AVITIA CNP on 01/07/18 ALLERGIES ALLERGIES DATE TYPE / CODE NAME / CODE REACTION SEVERITY SOURCE 11/19/2018 Drug red Hives Unknown [facility] Allergy/416 dye/[id number] Hospital [id number](SNOM 1(RXNORM) Repository ED CT) 11/30/2016 DRUG TIAN ANAPHYLAXIS High [facility] INGREDI/[id number] [id number](SNOM Repository ED CT) ENCOUNTERS ENCOUNTERS ADMIT/DISCHARGE ACCOUNT ADMITTING ENCOUNTER LOCATION SOURCE NUMBER CLASS 11/19/2018/11/19/19 [id number] Emergency [address] ing:ED Repository 04/29/2018/04/29/20 [id number] Emergency [address] ing:ED Repository 02/18/2018/02/19/20 [id number] Emergency [address] ing:ED Repository 01/07/2018/01/09/20 [id number] Ambulatory [address] Repository PAYERS PAYERS ENCOUNTER GUARANTOR PAYER SUBSCRIBER SOURCE 11/19/2018 CANDIDA Beyer Primary NOT GIVENUNK [place] [id number] Insurance:SELF PAY [facility] [place] [address]Pyr: Number: Effective Repository Date:2018-11-19 () 04/29/2018 CANDIDA Beyer Primary NOT GIVENUNK [place] [id number] Insurance:SELF PAY [facility] [place] [address]Zzi: Number: Effective Repository Date:2018-04-29 () 02/18/2018 CANDIDA Beyer Primary NOT GIVENUNK [place] [id number] Insurance:SELF PAY [facility] [place] [id number]: Number: Effective Repository Date:2018-02-18 ()
== END 2018-11-19 14:56 | disposition home or self-care (01) ==
PROVIDERS: Emergency Provider Emergency Medicine
DX: R21 Rash and other nonspecific skin eruption (principal); T78.40XA Allergy, unspecified, initial encounter; X58.XXXA Exposure to other specified factors, initial encounter; B34.9 Viral infection, unspecified; R11.2 Nausea with vomiting, unspecified; R19.7 Diarrhea, unspecified; A08.4 Viral intestinal infection, unspecified; D64.9 Anemia, unspecified; Z90.49 Acquired absence of other specified parts of digestive tract
CPT/HCPCS: 99283

== ENCOUNTER 2019-01-02 09:23 | Emergency (ER) | payer OTHER, SELFPAY ==
[2019-01-02 09:24] VITALS: BP 129/69; PULSE 70; RESP 16; TEMP 36.4; O2SAT 100; BMI 34.9
--- NOTE | 2019-01-02 09:37 | ED.VIS.GEN ---
History of Present Illness Chief Complaint: Abd Pain Informant: Patient, Family Onset: Yesterday Context: Sudden Onset Timing: Continuous - Continuous since 05: 00, Intermittent - Intermittent last evening for several hours, Waxes and wanes Quality: Sharp Location: Right flank to right groin Current Severity: Mild Maximum Severity: Severe Worsened by: Pressure, lying on it, movement Relieved by: Nothing Associated Symptoms: Nausea this morning Narrative: Patient is a 33-year-old female whose last menstrual period was December 21 and was not normal. She is status post tubal ligation 2013. She has been 4 times with 4 children. She is status post cholecystectomy, as well. She denies fever, chills night sweats. She does report frequency and urgency. Denies hematuria or dysuria. She was sent from urgent care because UA was negative and ruled out a kidney stone. There is a family history of ureterolithiasis. She denies respiratory, cardiac symptoms. She denies food intolerance. There is no history of trauma. She has not noted a rash or any lesions. She denies vaginal discharge or vaginal bleeding since November. There is no past medical history of STD. Prior similar symptoms: No Recent Illness/Hospitalization: No Past Medical History - Allergies and Home Meds Allergies/Adverse Reactions: Allergies shaw Allergy (Verified 01/02/19 09:25) Hives red dye Allergy (Verified 11/19/18 14:18) Hives RED DYE 40 Primary Care Physician: Care Physician,No Primary [Primary Care Provider] - Prior records reviewed: Yes Past Medical History: None Surgical History: cholecystectomy, - - Bilateral tubal ligation Lives: Spouse/ Significant Other, With Family Smoking Status: Never smoker Alcohol: None Drugs: None Review of Systems General: Denies: Chills, Fever, Malaise, Sweats, Weight loss Eyes: Denies: Visual changes - bilaterally, Diplopia ENT: Denies: Bilateral ear pain, Rhinorrhea, Sore throat Cardiovascular: Denies: Chest pain, Palpitations Respiratory: Denies: Dyspnea, Cough, Dyspnea on exertion Gastrointestinal: Reports: Abdominal pain, Nausea. Denies: Vomiting, Diarrhea, Constipation, Melena, Hematochezia Genitourinary: Reports: Frequency. Denies: Dysuria, Hematuria Musculoskeletal: Reports: Back pain. Denies: Myalgias, Arthralgias, Extremity Pain Skin: Denies: Rash, Wounds Neurological: Denies: Headache, Weakness, Numbness Endocrine: Denies: Polyuria, Polydipsia Hematologic: Denies: Easy bruising, Easy bleeding Physical Exam Vital Signs/Narrative: Vital Signs Temp Pulse Resp BP Pulse Ox 01/02/19 09:24 97.6 F L 70 16 129/69 H 100 Inital Vital Signs reviewed: Yes General: Well nourished, Well developed, Obese, No Acute Distress Head: Normocephalic, Atraumatic Eyes: Perrl, EOMI. Negative for: Pale conjunctiva, Scleral icterus ENT: Moist mucous membranes, No rhinorrhea, Sinus tenderness Neck: Supple, Nontender, No lymphadenopathy, No JVD Cardiovascular: Regular rate, Regular rhythm, No murmurs, Normal S1, Normal S2 Respiratory: No distress, CTA bilaterally, Chest nontender Abdomen: Soft, Nondistended, Normal bowel sounds, No masses, Tender. Negative for: Nontender, Guarding, Rebound tenderness, Psoas sign, Obturator sign, Rovsig's sign, Aden's sign Back: Nontender, Normal Inspection. Negative for: CVA tenderness Extremities: Nontender, No edema Skin: Normal color, No rash, - - Patient states she has anemia of unknown etiology and normally appears pale. Neurological: Alert, Oriented x3, Cranial nerves II-XII grossly intact, Normal Strength, Normal Sensation Psychological: Normal affect, Normal Mood Diagnostic/Tx/Re-eval Impressions Abdomen/Pelvis CT 01/02/19 12:40 IMPRESSION: Right ovarian cyst. Thickening of the endometrium. Electronically Signed: Joe Hill, at 15:13 EST , Service support , 01/02/19 12:40 Abdomen/Pelvis WITH Contrast [CT] Stat Laboratory Results 01/02/19 01/02/19 01/02/19 09:50 09:50 09:50 WBC 5.2 RBC 4.57 Hgb 7.3 L Hct 28.6 L MCV 62.6 L MCH 16.0 L MCHC 25.5 L RDW 19.6 H RDW Differential 43.6 Plt Count 357 MPV 9.6 Immature Gran % (Auto) 0.200 Neut % (Auto) 64.3 Lymph % (Auto) 25.2 Ward % (Auto) 7.5 Eos % (Auto) 1.3 Baso % (Auto) 1.5 H Absolute Neuts (auto) 3.3 Absolute Lymphs (auto) 1.31 Total Counted Not Reportable Differential Comment COMMENT Sodium 141 Potassium 3.9 Chloride 111 H Carbon Dioxide 26.0 Anion Gap 4 L BUN 8 Creatinine 0.70 Estim Creat Clear Calc 93.68 Est GFR (MDRD) Af Amer 123 Est GFR (MDRD) Non-Af 102 BUN/Creatinine Ratio 11.5 Glucose 100 Calcium 8.2 L Serum , Qual NEGATIVE Urine Color Urine Clarity Urine pH Ur Specific Frederick Urine Protein Urine Glucose (UA) Urine Ketones Urine Occult Blood Urine Nitrite Urine Bilirubin Urine Urobilinogen Ur Leukocyte Esterase Urine RBC Urine WBC Ur Squamous Epith Cells Urine Bacteria Urine Mucus 01/02/19 11:45 WBC RBC Hgb Hct MCV MCH MCHC RDW RDW Differential Plt Count MPV Immature Gran % (Auto) Neut % (Auto) Lymph % (Auto) Ward % (Auto) Eos % (Auto) Baso % (Auto) Absolute Neuts (auto) Absolute Lymphs (auto) Total Counted Differential Comment Sodium Potassium Chloride Carbon Dioxide Anion Gap BUN Creatinine Estim Creat Clear Calc Est GFR (MDRD) Af Amer Est GFR (MDRD) Non-Af BUN/Creatinine Ratio Glucose Calcium Serum , Qual Urine Color Yellow Urine Clarity Sl. Cloudy Urine pH 8.0 Ur Specific Frederick 1.010 Urine Protein Negative Urine Glucose (UA) Normal Urine Ketones Negative Urine Occult Blood Negative Urine Nitrite Negative Urine Bilirubin Negative Urine Urobilinogen Normal Ur Leukocyte Esterase 25 H Urine RBC 0 SEEN Urine WBC 0-5 SEEN Ur Squamous Epith Cells 5-10 SEEN Urine Bacteria RARE Urine Mucus 0 SEEN - Medical Decision Making Since patient is status post tubal ligation with an abnormal menstrual cycle end of November will obtain test. If positive will need pelvic ultrasound to evaluate for ectopic . Will repeat UA since only a macro was performed at the urgent care. CBC and electrode panel was obtained to assess white count and determine patient's hemoglobin since she appears pale. Also to assess renal function as well as electrolytes. Patient was offered pain medicine. She declined. Since test was negative and UA was negative concerned this may represent mesenteric adenitis, appendicitis or ovarian cyst a CT of the abdomen and pelvis with contrast was obtained. CT of the abdomen pelvis reveals right ovarian cyst. Patient was reassessed at 1520. She is pain-free. She was informed of her results. Since patient does not have a physician and is insured she was referred to Dr. Ana Christianson ED Disposition - Plan for ED Patient: Disposition: Home or Assisted Living Diagnosis: Right ovarian cyst, Acute abdominal pain in right lower quadrant Instructions: ED Cyst Ovarian Referrals: Care Physician,No Primary [Primary Care Provider] - Donna Dong MD [STAFF PHYSICIAN] - 3-5 Days if not improving Additional Instructions: Take 4 Advil every 8 hours for the next 3-5 days for your right lower quadrant abdominal pain.
[2019-01-02] MEDS: 0.9% Normal Saline 1,000 ML 250 ML IV (09:49)
[2019-01-02 10:12] LABS: Absolute Lymphocyte Count 1.31 X10^3/ul (0.83-4.51); Absolute Neutrophil Count 3.3 X10^3/uL (2.0-7.7); Basophil# 0.08 X10^3/uL; Basophil% 1.5 % (0-1); Eosinophil# 0.07 X10^3/uL; Eosinophils% 1.3 % (0-5); Hematocrit 28.6 % (37-47); Hemoglobin 7.3 g/dl (12.0-15.0); Lymphocyte # 1.31 X10^3/ul (4.0); Lymphocyte % 25.2 % (19-41); Mean Corp Hgb Conc 25.5 g/gl (32-36); Mean Corpuscular Volume 62.6 fL (81-99); Mean Platelet Vol. 9.6 fl (6.2-12.0); Monocyte# 0.39 X10^3/uL; Monocyte% 7.5 % (0-10); Neutrophil # 3.33 X10^3/uL (2.7-7.7); Neutrophil % 64.3 % (47-70); Platelet Count 357 K/mm3 (150-450); RBC Distribution Width CV 19.6 % (11.6-14.6); RBC Distribution Width SD 43.6 fl (35.1-43.9); Red Blood Count 4.57 M/mm3 (4.2-5.4); White Blood Count 5.2 K/mm3 (4.4-11.0)
[2019-01-02 10:13] LABS: Anion Gap 4 (5-15); BUN 8 mg/dL (7-18); BUN/Creat Ratio 11.5 RATIO (10-20); Calcium,Total 8.2 mg/dL (8.5-10.1); Chloride 111 mmol/L (98-107); EST Glomerular Filtration Rate 102 mL/min (>60); Est Glom Filt Rate - Afr Amer 123 mL/min (>60); Estimated Creatinine Clearance 93.68 ml/min; Glucose 100 mg/dL (74-106); Potassium 3.9 mmol/L (3.5-5.1); Sodium Level 141 mmol/L (136-145)
[2019-01-02 10:14] LABS: Differential Indicated SCAN CRITERIA MET; POSITIVE COUNT NO; POSITIVE DIFFERENTIAL NO; POSITIVE MORPHOLOGY YES
[2019-01-02 10:18] LABS: Pregnancy, Serum, hCG Quali. NEGATIVE Negative (0-9 Nonpreg)
[2019-01-02 11:49] LABS: Mucous, Urine 0 SEEN /hpf (<or=2+); Red Blood Cells-Urine 0 SEEN /hpf (0-5)
[2019-01-02 11:55] LABS: Color, Urine Yellow (Yellow); Glucose, Dipstick Normal (Normal); Ketone-Dipstick Negative (Negative); Leukocyte Esterase-Dipstick 25 /ul (Negative); Nitrite-Dipstick Negative (Negative); Occult Blood-Urine Negative /ul (Negative); Protein-Dipstick Negative (Negative); Urine Bilirubin Dipstick Negative (Negative); Urine Clarity Sl. Cloudy (Clear); Urine Urobilinogen Normal (Normal)
[2019-01-02 12:04] LABS: Bacteria RARE /hpf (None Seen); Squamous Epithelial Cells - UA 5-10 SEEN /hpf (5-10); White Blood Cells 0-5 SEEN /hpf (0-5)
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
[2019-01-02 15:46] VITALS: BP 129/65; PULSE 65; RESP 18; O2SAT 99
== END 2019-01-02 15:46 | disposition home or self-care (01) ==
PROVIDERS: Emergency Provider Emergency Medicine
DX: N83.201 Unspecified ovarian cyst, right side (principal); R10.31 Right lower quadrant pain; R11.0 Nausea; D64.9 Anemia, unspecified; R35.0 Frequency of micturition; R39.15 Urgency of urination; Z79.899 Other long term (current) drug therapy; Z98.51 Tubal ligation status; Z90.49 Acquired absence of other specified parts of digestive tract
CPT/HCPCS: 74177; 80048; 81001; 84703; 85025; 96360; 96361; 99283; J7030; Q9967; A4216